=== PATIENT | male | born 1995 ===

== ENCOUNTER → 2023-04-02 | Outpatient (REF) | payer OTHER ==
[2023-04-02 09:33] LABS: SEMEN APPEARANCE OPAQUE (OPAQUE); SEMEN VISCOSITY LIQUID (LIQUID); SEMEN VOLUME 1.1 ml (2.0-5.0); SEMEN pH 8.5 (7.0-8.0)
[2023-04-02 09:34] LABS: SPERM CONCENTRATION 33.5 M/ml (>=15.0); WBC CONCENTRATION <=1 M/ml (<=1 M/ml)
== END ==
LOC: M LAB REF 09:06
PROVIDERS: ATTEND Obstetrics & Gynecology Obstetrics
DX: N46.9 Male infertility, unspecified (principal)